=== PATIENT | male | born 1935 | race Caucasian/White ===

== ENCOUNTER 2016-07-22 08:45 | Emergency (ER) | payer OTHER ==
[~2016-07-22] VITALS: Ht 172.7 cm; Wt 69.5 kg
[~2016-07-22 08:45] MED LIST: ALPR-138 PO; ASPI81 PO; CEPH250 PO; CEPH500C3 PO; LORTA5 PO; OMEP20TA39 PO; PRAV20 PO; PROS5TAB2 PO; [UNRECOGNIZED DRUG - REMARK]
[2016-07-22 08:47] VITALS: BP 141/70; PULSE 61; RESP 18; TEMP 97.9; O2SAT 100
[2016-07-22] MEDS ORDERED: BUSP5TAB PO (09:09)
[2016-07-22] MEDS ORDERED: PRAV20TA2 PO (09:09)
[2016-07-22] MEDS ORDERED: DOXA1TAB34 PO (09:09)
[2016-07-22] MEDS ORDERED: PROS5TAB PO (09:09)
[2016-07-22] MEDS ORDERED: ASPI1TAB69 PO (09:09)
--- NOTE | 2016-07-22 09:18 | PD ---
HPI Chief Complaint: GI Complaint Time Seen by Provider: 08:58 Travel History International Travel<30 days: No Contact w/Intl Traveler<30days: No Traveled to known affect area: No History of Present Illness HPI This patient complains of abdominal symptoms but very atypical. He says that for 2 months he is been eating intermittent abdominal pains that only occur at night around 2 AM. He says that he has no nausea or vomiting or diarrhea or fever. The pain is never occur during the day and always get better when he eats. He is currently pain-free now and feels fine. He has a primary care physician and a GI physician and has not mentioned this to either one. Severity seems mild. 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 CHICAS GAVE ME OMEPRAZOLE FOR ACID IN MY STOMACH") GERD: Yes Genitourinary: Yes (PROSTATE PROBLEMS) Kidney Stones: Yes Tetanus Vaccination: > 5 Years Influenza Vaccination: Yes Past Surgical History Tonsillectomy: Yes Other Surgery: Yes (BACK SURGERY X25YRS AGO. HX COLONOSCOPY AND DIALATED ESOPHOGAS. ) Social History Alcohol Use: No Tobacco Use: No Substance Use: No Allergies-Medications (Allergen,Severity, Reaction): Coded Allergies: No Known Allergies (Verified , 07/22/16) Reported Meds & Prescriptions Reported Meds & Active Scripts Active Reported Doxazosin (Doxazosin Mesylate) 4 Mg Tab 4 Mg PO DAILY Buspirone (Buspirone HCl) 5 Mg Tab 1-2 Tab PO BID PRN Pravastatin 20 Mg Tab 20 Mg PO DAILY Proscar (Finasteride) 5 Mg Tab 5 Mg PO DAILY Do not crush. Aspirin 81 Mg Tabdr 81 Mg PO DAILY Review of Systems HENT: No: Headaches Cardiovascular: No: Chest Pain or Discomfort Respiratory: No: Shortness of Breath Gastrointestinal: Positive: Abdominal Pain Physical Exam Narrative GASTROINTESTINAL: Abdomen soft, non-tender, nondistended. Positive bowel sounds. No hepato-splenomegaly, or palpable masses. No guarding. SKIN: Inspection shows no rash or ulcers. Palpation shows no induration or nodules. Very hard of hearing NECK: Symmetrical appearance, midline trachea. No mass or crepitus. Thyroid without enlargement, tenderness, or mass. Data Data Last Documented VS Vital Signs Date Time Temp Pulse Resp B/P Pulse Ox O2 Delivery O2 Flow Rate FiO2 07/22/16 08:47 97.9 61 18 141/70 100 Orders Urinalysis - C+S If Indicated (07/22/16 08:52) MDM Medical Decision Making Medical Screen Exam Complete: Yes Emergency Medical Condition: Yes Medical Record Reviewed: Yes Differential Diagnosis Irritable bowel syndrome, colitis, depression Narrative Course I have reviewed the patient's electronic medical record. Was seen here for abdominal pain in 2012 This patient's presentation is very atypical. He is an asymptomatic man with normal vital signs and a soft benign nontender abdomen having pains that only happen at night and get better when eating. I don't think extensive emergency room workup is going to reveal much here. I don't have any clinical suspicion of emergent intra-abdominal process. He should follow-up with his primary care or GI physician for this. Diagnosis Primary Impression: Abdominal pain Qualified Code: R10.9 - Abdominal pain, unspecified location Additional Instructions: Follow-up with primary care and GI physicians Consider hearing aids Med/Other Pt SpecificInfo: Other Disposition: 01 DISCHARGE HOME Condition: Stable Augie Rapp MD Jul 22, 2016 09:18
== END 2016-07-22 09:29 | disposition home or self-care (01) ==
LOC: PHED 08:45
DX: R10.9 Unspecified abdominal pain (principal); E78.00 Pure hypercholesterolemia, unspecified; F41.9 Anxiety disorder, unspecified; I65.21 Occlusion and stenosis of right carotid artery; Z87.442 Personal history of urinary calculi
CPT/HCPCS: 99283